=== PATIENT | female | born 1940 | race Caucasian/White ===

== ENCOUNTER 2017-04-26 08:42 | Outpatient (CLI) | payer BC, MEDICARE ==
--- NOTE | 2017-04-26 13:47 | PET ---
PET CT OF BRAIN: Date: 04/26/17 HISTORY: 76-year-old female with Alzheimer's disease, unspecified. TECHNIQUE: PET CT of the brain was performed following the intravenous administration of 9 mCi [id number]. Imaging was performed after an uptake interval of 45 minutes. FINDINGS: There is hypometabolism noted in the temporoparietal lobes. IMPRESSION: Findings are consistent with Alzheimer's disease. POS: [facility]
== END 2017-04-26 08:43 | disposition home or self-care (01) ==
LOC: PET 08:42
PROVIDERS: ATTEND Psychiatry & Neurology Neurology
DX: G30.9 Alzheimer's disease, unspecified (principal)
CPT/HCPCS: 78608; A9552